=== PATIENT | male | born 1960 | race Caucasian/White ===

== ENCOUNTER 2023-10-27 10:10 | Emergency (ER) | payer MEDICAID, OTHER ==
[~2023-10-27] VITALS: Ht 162.6 cm; Wt 63.0 kg
[2023-10-27 10:31] VITALS: O2SAT 100
[2023-10-27 13:03] LABS: CLARITY URINE CLEAR (CLEAR); COLOR URINE YELLOW (YELLOW); GLUCOSE URINE 2+ (NEGATIVE); KETONES URINE NEGATIVE (NEGATIVE); LEUKOCYTE ESTERASE URINE NEGATIVE (NEGATIVE); NITRITE URINE NEGATIVE (NEGATIVE); OCCULT BLOOD URINE NEGATIVE (NEGATIVE); PROTEIN URINE NEGATIVE (NEGATIVE); SPECIFIC GRAVITY URINE 1.014 (1.005-1.030); UROBILINOGEN URINE 0.2 E.U./dL (0.2-1.0)
[2023-10-27 13:16] LABS: BACTERIA URINE FEW; RBC URINE 0-2 /hpf (0-2); SQUAMOUS EPITHELIAL CELL URINE NONE SEEN /lpf (RARE/1+); WBC URINE 0-2 /hpf (0-2); YEAST URINE NONE SEEN
[2023-10-27] MEDS ORDERED: TAMS-11 MT (13:22)
[2023-10-27 13:45] VITALS: BP 136/68; PULSE 74; RESP 18; TEMP 37.05852; O2SAT 100
== END 2023-10-27 13:46 | disposition home or self-care (01) ==
LOC: ER 10:10
DX: R33.9 Retention of urine, unspecified (principal)
CPT/HCPCS: 51702; 81003; 99284

== ENCOUNTER 2023-10-30 10:09 | Emergency (ER) | payer MEDICAID, OTHER ==
[~2023-10-30] VITALS: Ht 170.2 cm; Wt 66.0 kg
[~2023-10-30 10:09] MED LIST: TAMS-11 MT
[2023-10-30 10:28] VITALS: BP 121/59; PULSE 68; RESP 18; TEMP 98.1; O2SAT 98
== END 2023-10-30 10:43 | disposition left against medical advice (07) ==
LOC: ER 10:09
DX: T83.098A Other mechanical complication of other urinary catheter, initial encounter (principal); X58.XXXA Exposure to other specified factors, initial encounter; Y93.89 Activity, other specified; Y92.89 Other specified places as the place of occurrence of the external cause; Y99.8 Other external cause status
CPT/HCPCS: 99281

== ENCOUNTER 2023-11-06 09:42 | Emergency (ER) | payer OTHER ==
[~2023-11-06] VITALS: Ht 162.6 cm; Wt 63.5 kg
[2023-11-06 09:46] VITALS: TEMP 98.3; O2SAT 100
[2023-11-06 12:30] VITALS: BP 128/88; PULSE 77; RESP 16; O2SAT 99
== END 2023-11-06 12:32 | disposition home or self-care (01) ==
LOC: ER 09:42
DX: T83.098A Other mechanical complication of other urinary catheter, initial encounter (principal)
CPT/HCPCS: 99281